=== PATIENT | male | born 1980 | race Caucasian/White ===

== ENCOUNTER 2023-02-17 12:23 | Outpatient (CLI) | payer SELFPAY ==
[2023-02-17 12:39] LABS: Appearance Urine Clear (Clear); Bilirubin Urine 3+ (Negative); Blood Urine Negative (Negative); Glucose Urine UA Negative (Negative); Ketones Urine Negative (Negative); Leukocyte Esterase Ur Negative (Negative); Nitrate Urine Negative (Negative); Protein Urine Negative (Negative); pH Urine 6.5 (5.0-8.0)
[2023-02-17 12:40] LABS: Basophils Absolute Auto 0.12 K/mm3 (0.00-0.10); Basophils Percent Auto 1.1 % (0.0-1.0); Eosinophils Absolute Auto 0.19 K/mm3 (0.02-0.50); Eosinophils Percent Auto 1.7 % (1.0-6.0); Hematocrit 40.2 % (40.0-54.0); Hemoglobin 14.4 g/dL (14.0-18.0); Immature Granulocyte Absolute 0.17 K/mm3 (0.00-0.00); Immature Granulocyte Percent A 1.5 % (0.0-0.0); Immature Platelet Fraction Pct 16.9 % (1.0-7.0); Lymphocytes Absolute Auto 1.32 K/mm3 (1.10-4.50); Lymphocytes Percent Auto 11.8 % (18.0-42.0); Mean Corpuscular HGB Conc 35.8 g/dL (32.0-36.0); Mean Corpuscular Volume 86.6 fL (78.0-102.0); Mean Platelet Volume 14.1 fl (8.7-11.0); Monocytes Absolute Auto 0.99 K/mm3 (0.10-0.90); Monocytes Percent Auto 8.8 % (2.0-11.0); Neutrophils Absolute Auto 8.4 K/mm3 (1.7-7.2); Neutrophils Percent Auto 75.1 % (50.0-70.0); Platelet Count Result 236 K/mm3 (150-420); Red Blood Count 4.64 M/mm3 (4.70-6.10); Red Cell Distribution Width 16.4 % (11.6-14.4); White Blood Count 11.2 K/mm3 (4.8-10.8)
[2023-02-17 12:52] LABS: Color Urine Dark Amber (Yellow)
[2023-02-17 12:53] LABS: Add Urine Microscopic? YES; Bacteria Urine None seen /hpf; RBC Urine 0-2 /hpf (0-2); Squamous Epithelial Cell Urine Rare /hpf (Few); WBC Urine 0-3 /hpf (0-3)
[2023-02-17 13:02] LABS: Alanine Aminotransferase 77 U/L (16-63); Alkaline Phosphatase 331 U/L (46-116); Anion Gap 10 mmol/L (8-16); Aspartate Amino Transferase 42 U/L (15-37); Blood Urea Nitrogen 18 mg/dL (7-18); Calcium 9.1 mg/dL (8.5-10.1); Carbon Dioxide 26 mmol/L (21-32); Chloride 98 mmol/L (98-108); Estimated Glomerular Filt Rate 54; GGT 66 U/L (15-85); Glucose 107 mg/dL (70-99); Osmolality Calculated 279 mOsm/kg (285-295); Potassium 4.1 mmol/L (3.5-5.1); Sodium 134 mmol/L (136-145); Total Protein 6.3 g/dL (6.4-8.2)
[2023-02-17 13:04] LABS: Ammonia < 10 umol/L (11-32); Bilirubin Direct > 16.0 mg/dL (0-0.2); CRP < 0.5 mg/dL (0.0-0.9)
[2023-02-17 13:05] LABS: Bilirubin,Total > 25.0 mg/dL (0.00-1.00)
[2023-02-17 13:41] LABS: Erythrocyte Sedimentation Rate 10 mm/hr (0-15)
[2023-02-22 19:33] LABS: ANA Cascade Screen Negative (Negative)
== END 2023-02-17 12:24 | disposition home or self-care (01) ==
LOC: CHSLAB 12:26
PROVIDERS: PCP Family Medicine; Visit Provider Family Medicine
DX: I10 Essential (primary) hypertension (principal); R17 Unspecified jaundice
CPT/HCPCS: 36415; 80053; 81001; 82140; 82248; 82977; 85025; 85055; 85652; 86038; 86140

== ENCOUNTER 2023-03-20 17:59 | Outpatient (CLI) | payer BC, SELFPAY ==
[2023-03-20 18:30] LABS: Basophils Absolute Auto 0.12 K/mm3 (0.00-0.10); Basophils Percent Auto 1.3 % (0.0-1.0); Eosinophils Absolute Auto 0.19 K/mm3 (0.02-0.50); Eosinophils Percent Auto 2.1 % (1.0-6.0); Hematocrit 34.1 % (40.0-54.0); Hemoglobin 11.7 g/dL (14.0-18.0); Immature Granulocyte Absolute 0.14 K/mm3 (0.00-0.00); Immature Granulocyte Percent A 1.5 % (0.0-0.0); Lymphocytes Absolute Auto 2.14 K/mm3 (1.10-4.50); Lymphocytes Percent Auto 23.5 % (18.0-42.0); Mean Corpuscular HGB Conc 34.3 g/dL (32.0-36.0); Mean Corpuscular Hemoglobin 32.7 pg (27.0-31.0); Mean Corpuscular Volume 95.3 fL (78.0-102.0); Mean Platelet Volume 14.1 fl (8.7-11.0); Monocytes Absolute Auto 0.58 K/mm3 (0.10-0.90); Monocytes Percent Auto 6.4 % (2.0-11.0); Neutrophils Percent Auto 65.2 % (50.0-70.0); Platelet Count Result 276 K/mm3 (150-420); Red Blood Count 3.58 M/mm3 (4.70-6.10); Red Cell Distribution Width 15.7 % (11.6-14.4); White Blood Count 9.1 K/mm3 (4.8-10.8)
[2023-03-20 19:51] LABS: Alanine Aminotransferase 81 U/L (16-63); Albumin Level 2.9 g/dL (3.4-5.0); Alkaline Phosphatase 340 U/L (46-116); Anion Gap 11 mmol/L (8-16); Aspartate Amino Transferase 62 U/L (15-37); Bilirubin,Total 13.3 mg/dL (0.00-1.00); Blood Urea Nitrogen 23 mg/dL (7-18); Calcium 9.1 mg/dL (8.5-10.1); Carbon Dioxide 25 mmol/L (21-32); Chloride 105 mmol/L (98-108); Estimated Glomerular Filt Rate > 60; Folic Acid 15.8 ng/mL (8.6->20); Glucose 91 mg/dL (70-99); Osmolality Calculated 295 mOsm/kg (285-295); Potassium 4.1 mmol/L (3.5-5.1); Sodium 141 mmol/L (136-145); Total Protein 6.1 g/dL (6.4-8.2); Vitamin B12 1745 pg/mL (193-986)
[2023-03-24 09:08] LABS: Methylmalonic Acid 130 nmol/L (87-318)
[2023-03-27 19:26] LABS: Vitamin D 25 Hydroxy 41 ng/mL (30-100)
== END 2023-03-20 18:00 | disposition home or self-care (01) ==
LOC: CHSLAB 18:01
PROVIDERS: PCP Family Medicine; Visit Provider Family Medicine
DX: R17 Unspecified jaundice (principal); R53.83 Other fatigue
CPT/HCPCS: 36415; 80053; 82248; 82306; 82607; 82746; 83921; 85025; 85055